=== PATIENT | female | born 1950 | race Caucasian/White ===

== ENCOUNTER 2018-11-21 14:42 | Emergency (ER) | payer MEDICARE, MEDICAID ==
[~2018-11-21] VITALS: Ht 152.4 cm; Wt 63.0 kg
[2018-11-21 18:53] VITALS: BP 127/69
== END 2018-11-21 18:55 | disposition home or self-care (01) ==
LOC: ER 14:42
DX: H60.92 Unspecified otitis externa, left ear (principal); I10 Essential (primary) hypertension; E11.9 Type 2 diabetes mellitus without complications
CPT/HCPCS: 99283

== ENCOUNTER 2019-09-12 08:45 | Emergency (ER) | payer MEDICARE, OTHER ==
[~2019-09-12] VITALS: Ht 165.1 cm; Wt 68.0 kg
[2019-09-12 12:46] VITALS: BP 142/81
== END 2019-09-12 12:48 | disposition home or self-care (01) ==
LOC: ER 08:45
DX: J02.8 Acute pharyngitis due to other specified organisms (principal); I10 Essential (primary) hypertension; E11.9 Type 2 diabetes mellitus without complications; Z98.890 Other specified postprocedural states
CPT/HCPCS: 71045; 87070; 87430; 99284